=== PATIENT | female | born 1960 | race African-American/Black ===

== ENCOUNTER 2018-07-10 07:49 | Day surgery (SDC) | payer OTHER ==
[~2018-07-10 07:49] MED LIST: DEXAMETHASONE 4 MG/ML 1 ML INJ; ROCURONIUM 50 MG INJ
[2018-07-10] MEDS ORDERED: FENTAnyl 50 MCG/ML VIAL ×2 (09:27→10:38)
[2018-07-10] MEDS ORDERED: GLYCOPYRROLATE 0.4 MG INJ (09:27)
[2018-07-10] MEDS ORDERED: NEOSTIGMINE 3 MG/3 ML SYRINGE (09:27)
[2018-07-10] MEDS ORDERED: LIDOCAINE 2% (SDV) 5 ML INJ (09:27)
[2018-07-10] MEDS ORDERED: ROCURONIUM 50 MG INJ (09:27)
[2018-07-10] MEDS ORDERED: PROPOFOL 20 ML (09:27)
[2018-07-10] MEDS ORDERED: MIDAZOLAM 1 MG/ML 2 ML INJ (09:28)
[2018-07-10] MEDS ORDERED: SUCCINYLCHOLINE CHLORIDE 100 MG/5 ML SYG IV (09:29)
[2018-07-10] MEDS ORDERED: DEXAMETHASONE 4 MG/ML 1 ML INJ (09:30)
[2018-07-10] MEDS ORDERED: SOD CHLORIDE 0.9% 1,000 ML IV (09:30)
[2018-07-10] MEDS ORDERED: ONDANSETRON 4 MG INJ (09:31)
[2018-07-10] MEDS: VANCOMYCIN 1 GM (PMX) 250 ML ×2 (09:52→10:18)
[2018-07-10] MEDS ORDERED: OXYCODONE/ACETAMINOPHEN (5/325) TAB PO ×4 (10:00→12:00)
[2018-07-10] MEDS ORDERED: DIPHENHYDRAMINE 50 MG INJ IV (10:00)
[2018-07-10] MEDS ORDERED: MIDAZOLAM 1 MG/ML 2 ML INJ IV (10:00)
[2018-07-10] MEDS ORDERED: HYDROmorphONE 1 MG/5 ML IV SYRINGE IV (10:00)
[2018-07-10] MEDS ORDERED: ATROPINE 1 MG/10 ML SYRINGE IV (10:00)
[2018-07-10] MEDS ORDERED: MEPERIDINE 25 MG INJ IV (10:00)
[2018-07-10] MEDS ORDERED: LABETALOL HCL 20MG INJ IV (10:00)
[2018-07-10] MEDS ORDERED: FENTAnyl 50 MCG/ML VIAL IV ×2 (10:00)
[2018-07-10] MEDS ORDERED: hydrALAzine 20 MG INJ IV (10:00)
[2018-07-10] MEDS ORDERED: morphine (1 MG/ML) 10ML SYRINGE IV ×2 (10:00)
[2018-07-10] MEDS ORDERED: EPHEDrine SULFATE 50 MG/5 ML SYG IV (10:00)
[2018-07-10] MEDS ORDERED: LABETALOL HCL 20MG INJ (10:31)
[2018-07-10] MEDS: ROPIVACAINE 0.5 % 30 ML VIAL (11:30)
[2018-07-10] MEDS: SOD CHLORIDE 0.9% 1,000 ML IV (11:32)
[2018-07-10] MEDS ORDERED: morphine 2 MG INJ IV (12:00)
[2018-07-10] MEDS ORDERED: ONDANSETRON 4 MG INJ IV (12:00)
[2018-07-10] MEDS: ONDANSETRON 4 MG INJ IV (12:08)
[2018-07-10] MEDS: HYDROmorphONE 1 MG/5 ML IV SYRINGE IV ×2 (12:08→12:28)
[2018-07-10] MEDS: morphine (1 MG/ML) 10ML SYRINGE IV (12:43)
== END 2018-07-10 14:35 | disposition home or self-care (01) ==
LOC: SDS 07:49
DX: S83.232D Complex tear of medial meniscus, current injury, left knee, subsequent encounter (principal); X58.XXXD Exposure to other specified factors, subsequent encounter; M22.42 Chondromalacia patellae, left knee; E11.9 Type 2 diabetes mellitus without complications; I48.0 Paroxysmal atrial fibrillation; E66.9 Obesity, unspecified; Z68.42 Body mass index [BMI] 45.0-49.9, adult; I10 Essential (primary) hypertension
CPT/HCPCS: 29881; 82962